=== PATIENT | female | born 1990 | race Caucasian/White ===

== ENCOUNTER 2021-03-07 21:54 | Emergency (ER) | payer SELFPAY ==
[~2021-03-07] VITALS: Ht 160 cm; Wt 51.7 kg
[2021-03-07 22:04] VITALS: BP 124/78
--- NOTE | 2021-03-07 22:27 | NUR ---
PT LEFT WITHOUT BEING SEEN BY MD. STATED THERE ARE SICK PATIENTS HERE AND I WANNA GO HOME
== END 2021-03-07 22:27 | disposition left against medical advice (07) ==
LOC: ER 21:54
DX: Z53.21 Procedure and treatment not carried out due to patient leaving prior to being seen by health care provider (principal); M54.2 Cervicalgia